=== PATIENT | female | born 1995 | race Caucasian/White ===

== ENCOUNTER 2018-05-27 23:15 | Emergency (ER) | payer OTHER ==
[~2018-05-27] VITALS: Ht 175.3 cm; Wt 92.2 kg
[2018-05-27 23:52] LABS: CULTURE INDICATED? YES; HCG UR SG 1.016 (1.003-1.030); MICROSCOPIC INDICATED
[2018-05-28] MEDS ORDERED: KETOROLAC 30 MG/1 ML IM ONE
[2018-05-28] MEDS ORDERED: ONDANSETRON ODT 4 MG PO ONE
[2018-05-28] MEDS ORDERED: KETOROLAC 30 MG/1 ML ONE (00:08)
[2018-05-28] MEDS ORDERED: ONDANSETRON ODT 4 MG ONE (00:08)
[2018-05-28 00:14] LABS: BASOPHILS # (AUTO) 0.03 x10^3/uL (0-0.1); BASOPHILS % (AUTO) 0 % (0-1); EOSINOPHILS # (AUTO) 0.12 x10^3/uL (0-0.4); EOSINOPHILS % (AUTO) 1 % (1-7); LYMPHOCYTES # (AUTO) 3.13 x10^3/uL (1-3.4); LYMPHOCYTES % (AUTO) 30 % (22-44); MD NO; MEAN CORPUSCULAR HEMOGLOBIN 34.2 pg (27.0-34.8); MEAN CORPUSCULAR HGB CONC 34.7 g/dL (32.4-35.8); MEAN CORPUSCULAR VOLUME 98.6 fL (80-100); MEAN PLATELET VOLUME 8.2 fL (7.4-10.4); MONOCYTES # (AUTO) 0.55 x10^3/uL (0.2-0.8); MONOCYTES % (AUTO) 5 % (2-9); NEUTROPHILS # (AUTO) 6.66 x10^3/uL (1.8-6.8); NEUTROPHILS % (AUTO) 64 % (42-75); PLATELET COUNT 370 x10^3/uL (130-400); RED BLOOD COUNT 4.13 x10^6/uL (3.82-5.3); RED CELL DISTRIBUTION WIDTH 11.6 % (9.6-15.2)
[2018-05-28 00:20] LABS: ANION GAP 11 mmol/L (5-15); CALCIUM 8.8 mg/dL (8.5-10.1); CHLORIDE 106 mmol/L (98-107); CREATININE 0.77 mg/dL (0.55-1.02)
[2018-05-28] MEDS ORDERED: PHENAZOPYRIDINE 200 MG TABLET PO ONE (01:30)
[2018-05-28] MEDS ORDERED: CEFDINIR 300 MG CAPSULE PO SCH (01:30)
[2018-05-28] MEDS ORDERED: PHENAZOPYRIDINE 200 MG TABLET ONE (01:47)
[2018-05-28] MEDS ORDERED: CEFDINIR 300 MG CAPSULE ONE (01:47)
[2018-05-28 02:06] VITALS: BP 113/81
== END 2018-05-28 02:09 | disposition home or self-care (01) ==
LOC: ED 23:55
DX: N10 Acute pyelonephritis (principal); F17.200 Nicotine dependence, unspecified, uncomplicated
CPT/HCPCS: 36415; 74176; 80048; 81025; 85025; 87086; 96372; 99285; J1885; Q0162; 96361; 96374

== ENCOUNTER 2018-10-07 19:53 | Emergency (ER) | payer SELFPAY ==
[~2018-10-07] VITALS: Ht 172.7 cm; Wt 90.5 kg
--- NOTE | 2018-10-07 20:26 | NUR ---
PT PRESENTED WITH C/O N/V WITH LOWER ABD PAIN X2 WKS. LMP MIDDLE OF DEC, UNSURE IF . PROVIDED PT WITH GOWN, WARM BLANKETS, MONITORS APPLIED, SIDERAILS UP X2, FAMILY AT BEDSIDE, CALL LIGHT WITHIN REACH. AWAITING ERP FOR EVAL AND ORDERS
[2018-10-07] MEDS ORDERED: ONDANSETRON ODT 4 MG ONE (20:44)
--- NOTE | 2018-10-07 20:48 | NUR ---
PT MEDICATED PER OCT. AWAITNG LAB AND URINE RESULTS
[2018-10-07 20:51] LABS: MEAN CORPUSCULAR HEMOGLOBIN 32.3 pg (27.0-34.8); MEAN CORPUSCULAR HGB CONC 35.1 g/dL (32.4-35.8); MEAN PLATELET VOLUME 7.7 fL (7.4-10.4); PLATELET COUNT 345 x10^3/uL (130-400); RED BLOOD COUNT 4.41 x10^6/uL (3.82-5.3); RED CELL DISTRIBUTION WIDTH 12.5 % (9.6-15.2)
[2018-10-07 20:59] LABS: HCG UR SG 1.025 (1.003-1.030)
[2018-10-07] MEDS ORDERED: ONDANSETRON ODT 4 MG PO ONE (21:00)
[2018-10-07 21:01] LABS: CULTURE INDICATED? YES; MICROSCOPIC INDICATED
[2018-10-07 21:03] LABS: ALBUMIN 3.8 g/dL (3.4-5.0); ANION GAP 6 mmol/L (5-15); CALCIUM 8.7 mg/dL (8.5-10.1); CHLORIDE 108 mmol/L (98-107); MD YES
[2018-10-07 21:07] LABS: ALANINE AMINOTRANSFERASE 23 U/L (12-78); ALKALINE PHOSPHATASE 68 U/L (45-117); BILIRUBIN,TOTAL 0.4 mg/dL (0.2-1.0); CREATININE 0.92 mg/dL (0.55-1.02); TOTAL PROTEIN 7.4 g/dL (6.4-8.2)
[2018-10-07 21:10] LABS: ANISOCYTOSIS 1+; LYMPH#(MANUAL) 2.73 x10^3/uL (1-3.4); LYMPHS% (MANUAL) 39 % (22-44); MONOS#(MANUAL) 0.35 x10^3/uL (0.3-2.7); MONOS% (MANUAL) 5 % (2-9); REACTIVE LYMPHS # (MANUAL) 0.98 x10^3/uL (0-0); REACTIVE LYMPHS % (MANUAL) 14 % (0-0); SEG#(MANUAL) 2.94 x10^3/uL (1.8-6.8); SEGS% (MANUAL) 42 % (42-75)
[2018-10-07 21:11] LABS: <PLATELET ESTIMATE> ADEQUATE; <PLT MORPHOLOGY> NORMAL PLT MORPH
--- NOTE | 2018-10-07 21:22 | NUR ---
PT TO ULTRASOUND
[2018-10-07] MEDS ORDERED: metroNIDAZOLE 500 MG TABLET PO ONE (22:00)
[2018-10-07] MEDS ORDERED: metroNIDAZOLE 500 MG TABLET ONE (22:10)
[2018-10-07 22:12] VITALS: BP 110/65
--- NOTE | 2018-10-07 22:14 | NUR ---
PT MEDICATED PER MAR
== END 2018-10-07 22:19 | disposition home or self-care (01) ==
LOC: ED 22:10
DX: O23.41 Unspecified infection of urinary tract in pregnancy, first trimester (principal); Z3A.08 8 weeks gestation of pregnancy; J45.909 Unspecified asthma, uncomplicated
CPT/HCPCS: 36415; 76856; 80053; 81001; 81025; 84702; 85025; 87086; 99284; Q0162